=== PATIENT | male | born 1975 | race Caucasian/White ===

== ENCOUNTER 2023-06-05 14:51 | Outpatient (REF) | payer OTHER, SELFPAY ==
[2023-06-05 14:55] LABS: ALT 54 U/L (16-63); AST 39 U/L (15-37); Albumin 4.5 g/dL (3.4-5.0); Alkaline Phosphatase 68 U/L (46-116); BUN 23 mg/dL (7-18); Bilirubin, Total 0.4 mg/dL (0.2-1.0); CREATININE 1.2 mg/dL (0.70-1.30); Calcium 9.6 mg/dL (8.5-10.1); Calculated LDL 299 mg/dL (<100); Chloride 104 mmol/L (98-107); Cholesterol 390 mg/dL (<200); Glucose 101 mg/dL (74-106); HDL Cholesterol 64 mg/dL (40-60); Potassium 4.1 mmol/L (3.5-5.1); Sodium 140 mmol/L (136-145); Total Protein 8.6 g/dL (6.4-8.2); Triglyceride 137 mg/dL (<150)
== END 2023-06-05 14:52 | disposition home or self-care (01) ==
LOC: NCHCN 14:51
PROVIDERS: PCP Family Medicine; Visit Provider Family Medicine
DX: E78.5 Hyperlipidemia, unspecified (principal)
CPT/HCPCS: 80053; 80061

== ENCOUNTER 2023-09-09 08:03 | Outpatient (REF) | payer OTHER, SELFPAY ==
[2023-09-09 15:10] LABS: ALT 36 U/L (16-63); AST 24 U/L (15-37); Albumin 3.6 g/dL (3.4-5.0); Alkaline Phosphatase 67 U/L (46-116); Anion Gap 7.1 mmol/L (3-11); BUN 20 mg/dL (7-18); Bilirubin, Total 0.2 mg/dL (0.2-1.0); CO2 30.9 mmol/L (21.0-32.0); CREATININE 1.3 mg/dL (0.70-1.30); Calcium 9.1 mg/dL (8.5-10.1); Calculated LDL 98 mg/dL (<100); Chloride 107 mmol/L (98-107); Cholesterol 154 mg/dL (<200); Estimated GFR 67.76 (mL/min/1.73m2); Glucose 100 mg/dL (74-106); HDL Cholesterol 45 mg/dL (40-60); Potassium 4.5 mmol/L (3.5-5.1); Sodium 145 mmol/L (136-145); Total Protein 7.7 g/dL (6.4-8.2); Triglyceride 57 mg/dL (<150)
== END 2023-09-09 08:04 | disposition home or self-care (01) ==
LOC: NCHCN 08:03
PROVIDERS: PCP Family Medicine; Visit Provider Family Medicine
DX: E66.3 Overweight (principal); E78.5 Hyperlipidemia, unspecified
CPT/HCPCS: 80053; 80061

== ENCOUNTER 2024-06-07 10:38 | Outpatient (REF) | payer OTHER, SELFPAY ==
[2024-06-07 14:56] LABS: Calculated LDL 207 mg/dL (<100); Cholesterol 282 mg/dL (<200); HDL Cholesterol 63 mg/dL (40-60); Triglyceride 60 mg/dL (<150)
== END 2024-06-07 10:39 | disposition home or self-care (01) ==
LOC: NCHCN 10:38
PROVIDERS: PCP Family Medicine; Visit Provider Family Medicine
DX: E78.5 Hyperlipidemia, unspecified (principal)
CPT/HCPCS: 80061